=== PATIENT | female | born 1955 | race Caucasian/White ===

== ENCOUNTER → 2016-10-07 | Outpatient (CLI) | payer OTHER ==
[~2016-10-07] MED LIST: ADVIN25/60 INH; ALBUAER2 INH; ASPI81TA28 PO; ATEN-173 PO; CLOP1TAB15 PO; GABA-113 PO; IPRASOL4 INH; LEVO150T9 PO; LISI-461 PO; NITR0.4S UT; OXYC-106 PO; PRLSR20 PO; SIMV80TA2 PO
--- NOTE | 2016-10-08 06:24 | SPLIT NIGHT TECHNICIAN REPORT ---
[facility] Split Night Polysomnogram - Fixture Designer Report Study date: 10/07/2016 Referring Physician: Josr Ghosh DO Name: PUJA VYAS Fixture Designer: DIANE Baez. Date of : 1955 Height: 60 years, Height 5' 5" Sex: Female Weight: 235 lbs Age: 60 BMI: Medications: 39.1 CEFTIN 500 MG, PREDNISONE 20 MG, ENDOCET 10-325 MG, VENTOLIN HFA 108 (90) BASE, SINGULAIR 10 MG, TENORMIN 25 MG, ZOCOR 80 MG, PROVENTIL, LEVOXYL 125 MCG, NEURONTIN 300 MG, PRILOSEC 20 MG, LISINOPRIL 10 MG, NASONEX, VALTREX, NITROGLYCERIN 0.4 MG Patient History PATIENT HAS HISTORY OF SNORING, DAYTIME SLEEPINESS, AND FATIGUE. SHE ALSO CARRIED A HISTORY OF COPD. SHE IS HERE TODAY FOR AN EVALUATION OF NHI. ESS = 10 RM 6 Parameters Monitored NPSG: E1-M2, E2-M1, Fp1-M2, Fp2-M1, F3-M2, F4-M2, F4-M1, C3-M2, C4-M2, C4-M1, O1-M2, O2-M2, O2-M1, T3-M2, T4-M1, P3-M2, P4-M1, CHIN1, CHIN2, HR, EKG, Legs, PFLOW, SNOR, FLOW, CFLOW, Tidal Volume, THOR, ABDO, SpO2, PLTH, CPRESS, ETCO2 Wave, ETCO2, pH SLEEP SUMMARY DATA DIAGNOSTIC TREATMENT Lights Out: 10:07:54 PM 1:28:54 AM Lights On: 1:15:24 AM 6:00:24 AM Total Recording Time (TRT): 188.0 min. 272.0 min. Total Sleep Time (TST): 133.5 min. 253.5 min. NREM Time: 120.0 min. 112.0 min. REM Time: 13.5 min. 141.5 min. Sleep Period Time (SPT): 150.0 min. 260.0 min. Sleep Efficiency (SE): 71 % 93 % Sleep Latency: 37.5 min. 11.5 min. Arousal Index: 63.8 7.3 PAP Treatment Levels: 4, 5, 6, 7, 8, 9, 10, 11 * Optimal Pressure(s) SLEEP STAGING DATA DIAGNOSTIC TREATMENT Duration (min) TST % Duration (min) TST % Stage Wake: 54.0 min. -- 18.0 min. -- WASO: 16.5 min. -- 6.5 min. -- NREM: 120.0 min. 90 % 112.0 min. 44 % Stage N1: 14.5 min. 11 % 12.0 min. 5 % Stage N2: 105.5 min. 79 % 56.5 min. 22 % Stage N3: 0.0 min. 0 % 43.5 min. 17 % REM: 13.5 min. 10 % 141.5 min. 56 % POSITIONAL DATA Event Count Index Event Count Index Supine: 135 91 4 40.8 Supine NREM: 135 91.4 4 40.8 Supine REM: N/A N/A N/A N/A Non-Supine: 58 77.5 38 9.2 Non-Supine NREM: 45 85.9 33 18.4 Non-Supine REM: 13 57.8 5 2.1 AROUSAL SUMMARY DATA: Event Count Index Event Count Index Apnea Arousals: 26 16.6 1 1.2 Hypopnea Arousals: 96 43.1 13 3.1 Snore Arousals: 11 4.9 7 1.7 PLM Arousals: 1 0.4 0 0.0 Non-Specific Arousals: 16 7.2 8 1.9 Total Arousals: 142 63.8 31 7.3 MYOCLONUS (PLM) Event Count Index Event Count Index PLM: 1 0.4 5 1.2 PLM AROUSAL: 1 0.4 0 0.0 PLM W/O AROUSAL 1 0.4 5 1.2 PLM W/RESP EVENT 0 0.0 0 0.0 MYOCLONUS (PLM) Event Count Index Event Count Index LM: 0 11.7 47 11.1 LM AROUSAL: 0 0.0 3 0.7 LM W/O AROUSAL LM W/RESP EVENT LM NON SPECIFIC 14 6.3 47 11.1 HEART RATE DATA DIAGNOSTIC TREATMENT Sleep (bpm): 58 61 REM (bpm): 81 84 NREM (bpm): 86 88 Tachycardia Count: 0 0 Tachycardia Duration: 0.00 0 Bradycardia Count: 0 0 Bradycardia Duration: 0.00 0 DIAGNOSTIC PORTION TREATMENT PORTION RESPIRATORY DATA Event Count Index Event Count Index AHI: -- 86.7 -- 9.7 RDI: -- 86.7 -- 10 Obstructive Apnea: 37 16.6 5 1.2 Central Apnea: 0 0.0 0 0.0 Mixed Apnea: 0 0.0 0 0.0 Hypopnea: 156 70.1 36 8.5 RERA: 0 0.0 1 0.2 Total Apneas: 37 16.6 5 1.2 RESPIRATORY DATA REM NREM SLEEP REM NREM SLEEP Supine Position: Obstructive Apneas: N/A 37 37 N/A 0 0 Central Apneas: N/A 0 0 N/A 0 0 Mixed Apneas: N/A 0 0 N/A 0 0 Hypopneas: N/A 98 98 N/A 3 3 RERA N/A 0 0 N/A 1 1 Total Supine Events: N/A 135 135 N/A 4 4 Supine AHI: N/A 91.4 91 N/A 40.8 40.8 Supine RDI: N/A 91.4 91.4 N/A 54.4 54.4 REM NREM SLEEP REM NREM SLEEP Non-Supine Position: Obstructive Apneas: 0 0 0 0 5 5 Central Apneas: 0 0 0 0 0 0 Mixed Apneas: 0 0 0 0 0 0 Hypopneas: 13 45 58 5 28 33 RERA 0 0 0 0 0 0 Total Supine Events: 13 45 58 5 33 38 Supine AHI: 57.8 85.9 77.5 2.1 18.4 9.2 Supine RDI: 57.8 85.9 77.5 2.1 18.4 9.2 OXYGEN DESTAURATION DATA: Event Count Index Event Count Index REM Desaturations: 14 62.2 5 2.1 NREM Desaturations: 172 86.0 34 18.2 SNORE DATA DIAGNOSTIC TREATMENT Snore Time: 6.3 1:40:24 AM Snore TST%: 2 3 Snore Arousal Count: 11 7 Snore Arousal Index: 4.9 1.7 Desaturation Event Summary: Minimum %SpO2 Event Count Mean/Min/Max Duration(sec.) Desaturation Index % Time In Bed > 90 62 27.0 / 15.0 / 48.8 125.6 6.5 86 - 90 219 23.9 / 9.5 / 57.3 54.1 53.2 81 - 85 19 17.7 / 9.5 / 36.8 7.1 35.2 76 - 80 8 38.9 / 9.5 / 87.5 29.0 3.6 71 - 75 2 38.9 / 35.5 / 42.3 20.7 1.3 66 - 70 0 N/A 0.0 0.2 61 - 65 0 N/A 0.0 0.0 56 - 60 0 N/A 0.0 0.0 51 - 55 0 N/A 0.0 0.0 < 50 0 N/A 0.0 0.0 OXYGEN SATURATION DATA DIAGNOSTIC TREATMENT SpO2 Mean Sleep: 86 % 86 % SpO2 Mean REM: 81 % 84 % SpO2 Mean NREM: 86 % 88 % SpO2 Minimum Sleep: 63 % 72 % SpO2 Minimum REM: 63 % 72 % SpO2 Minimum NREM: 79 % 80 % Time Below 90% (TST): 112.0 201.3 Time Below 88% (TST): 86.3 161.8 Total REM NREM Awake <50% 0.0 min. 0.0 min. 0.0 min. 0.0 min. 51 - 60% 0.0 min. 0.0 min. 0.0 min. 0.0 min. 61 - 70% 1.0 min. 1.0 min. 0.0 min. 0.0 min. 71 - 80% 22.3 min. 19.6 min. 1.8 min. 0.9 min. 81 - 90% 404.1 min. 124.0 min. 212.0 min. 68.1 min. 91 - 100% 29.6 min. 10.4 min. 17.3 min. 2.0 min. Average 86 84 87 88 Minimum SpO2 63 63 79 75 Desaturation Event Index 31.0 7.4 53.3 15.8 # Desat. Events below 89% 237 18 203 16 Time(%) with Saturation below 89% 68.0 29.0 32.5 6.5 Time(min.) with Saturation below 89% 311.0 132.7 148.4 29.8 Recording Fixture Designer Comments: Ms. Vyas slept in the right, left and supine positions. No cardiac arrhythmia noted. or PLM's noted. No bruxism noted. Snoring was noted and scored as a 3 on a scale of 1 through 5. (0=no snoring, 5=snoring loud enough to be heard through a closed door or down the [address]) At 1:15 am Ms. Vyas has met specific Split-Night criteria during the diagnostic portion of this study. CPAP was initiated at +4 CMH2O and up-titrated to an optimal level of +11 CMH2O, which nearly eliminated all respiratory events and snoring. A Phillips and Kapta Simplus size medium full face mask was used during titration Ms. Vyas awoke to use the restroom 0 times during the night. Ms. Vyas stated I slept as well as I do when I am in my own bed. I started supplemental oxygen at 1l/min around 4:38 am. I increased to 2l/min around 5:05 am. Final pressure was 11cwp cflex 3 with 2l/min of 02. The final report will be interpreted and signed by a sleep physician. The completed physician report will then be placed in the patient medical record. Therapy Event: Therapy (cm H20) 0 4 5 6 7 8 9 10 11 Total Time at Pressure (min.) 187.5 21.1 5.4 8.1 5.5 14.8 12.1 152.5 52.0 TST at Pressure (min.) 133.5 8.6 5.4 8.1 5.5 14.8 12.1 147.0 52.0 # Periods 1 1 1 1 1 1 1 1 1 Sleep Onset (min.) 37.5 11.5 0.0 0.0 0.0 0.0 0.0 0.0 0.0 REM Onset (min.) 162.0 N/A N/A N/A N/A N/A 0.6 0.0 21.5 Sleep Efficiency % 71 40 100 100 100 100 100 96 100 Wakefulness (%) 28.8 59.3 0.0 0.0 0.0 0.0 0.0 3.6 0.0 Wakefulness (min.) 54.0 12.5 0.0 0.0 0.0 0.0 0.0 5.5 0.0 NREM 1 (%) 7.7 35.6 0.0 0.0 0.0 0.0 0.0 3.0 0.0 NREM 1 (min.) 14.5 7.5 0.0 0.0 0.0 0.0 0.0 4.5 0.0 NREM 2 (%) 56.3 5.1 100.0 100.0 100.0 52.6 4.6 18.4 0.0 NREM 2 (min.) 105.5 1.1 5.4 8.1 5.5 7.8 0.6 28.0 0.0 NREM 3 (%) 0.0 0.0 0.0 0.0 0.0 47.4 0.0 9.8 41.3 NREM 3 (min.) 0.0 0.0 0.0 0.0 0.0 7.0 0.0 15.0 21.5 REM (%) 7.2 0.0 0.0 0.0 0.0 0.0 95.4 65.2 58.7 REM (min.) 13.5 0.0 0.0 0.0 0.0 0.0 11.5 99.5 30.5 # Arousals 142 8 4 1 0 12 0 6 0 Arousal Index 63.8 56.0 44.1 7.4 0.0 48.8 0.0 2.4 0.0 # Snore 253 23 45 56 16 37 12 78 0 Snore Index 113.7 161.0 496.6 412.7 173.6 150.4 59.7 31.8 0.0 AHI 86.7 35.0 88.3 59.0 0.0 48.8 19.9 1.2 1.2 AHI Supine 91.4 N/A N/A N/A N/A N/A N/A 40.8 N/A AHI Non-Supine 77.5 35.0 88.3 59.0 0.0 48.8 19.9 0.0 1.2 NREM AHI 90.0 35.0 88.3 59.0 0.0 48.8 0.0 3.8 0.0 REM AHI 57.8 N/A N/A N/A N/A N/A 20.9 0.0 2.0 RDI 86.7 35.0 88.3 59.0 0.0 48.8 19.9 1.6 1.2 # Obstructive 37 1 2 2 0 0 0 0 0 # Central Ap 0 0 0 0 0 0 0 0 0 # Mixed 0 0 0 0 0 0 0 0 0 # Hypopneas 156 4 6 6 0 12 4 3 1 RERAS 0 0 0 0 0 0 0 1 0 Total Respiratory Events 193 5 8 8 0 12 4 4 1 Time Below SpO2 89.00% (min.) 100.6 7.7 4.3 6.7 5.5 14.8 12.1 120.5 9.0 Mean NREM SpO2 (%) 86 86 87 87 85 84 86 88 91 Mean REM SpO2 (%) 81 N/A N/A N/A N/A N/A 78 83 90 Mean Sleep SpO2 (%) 86 86 87 87 85 84 78 85 90 Min NREM SpO2 (%) 79 83 83 82 84 80 84 84 90 Min REM SpO2 (%) 63 N/A N/A N/A N/A N/A 72 72 85 Position Supine (min.) 88.6 0.0 0.0 0.0 0.0 0.0 0.0 4.4 0.0 Position Non-supine (min.) 44.9 8.6 5.4 8.1 5.5 14.8 12.1 142.6 52.0 LM Index Sleep 12.1 7.0 11.0 7.4 10.9 12.2 0.0 15.9 6.9 LM Index NREM 12.5 7.0 11.0 7.4 10.9 12.2 0.0 11.4 11.2 LM Index REM 8.9 N/A N/A N/A N/A N/A 0.0 18.1 3.9 Mean Heart Rate (bpm) 58 59 58 58 59 57 62 62 60 Min Heart Rate (bpm) 42 53 54 54 58 50 48 54 55
--- NOTE | 2016-10-18 15:23 | POLYSOMNOGRAPH REPORT ---
REFERRING PERSON: Dr. Brett Goodrich. LUMP INSPECTOR: Byron Sweeney. PRIMARY CARE DOCTOR: Josr Ghosh DO in [place]. Ms. Vyas is a 60-year-old female with a history of excessive daytime sleepiness, fatigue and snoring. She carries a diagnosis of COPD. She is sent to the sleep lab to rule out sleep disordered breathing. Her [place] sleepiness scale score on the evening of this study is 10. BMI is 39.1. Following the technical and digital specifications of the [employer] (AASM) a standard diagnostic polysomnogram was performed monitoring EEG, EOG, EMG (chin and leg deviations), oxygen saturation, body position, digital video, respiratory effort and airflow. The sleep Stage and event scoring was based on the AASM Manual for the Scoring of Sleep and Associated Events 2007 edition. Apneas are defined as a drop in the peak thermal sensor excursion by >90% of baseline for at least 10 seconds. Hypopneas were scored using the 4% oxygen desaturation rule (4A-[employer]) and a decrease in the nasal pressure excursions by >30% of baseline for at least 10 seconds. Respiratory effort-related arousal (RERA's) is defined as a sequence of breaths lasting at least 10 seconds characterized by increasing respiratory effort or flattening of the nasal pressure waveform leading to an arousal from sleep when the sequence of breaths does not meet criteria for an apnea or hypopnea. Apnea Hypopnea index (AHI) is defined as the number of apneas and hypopneas occurring in an hour of sleep. Respiratory disturbance index (RDI) is defined as the number of apneas, hypopneas, and RERA's occurring in an hour of sleep. Ms. Vyas did qualify for a split night sleep study. She was observed for 133.5 minutes of sleep time. During that time, she had 11% N1 sleep, 79% N2 sleep and 10% REM sleep. There were 142 arousals from sleep. 16 of those arousals were nonspecific, 1 was due to periodic limb movement, 11 due to snoring and the remainder were due to respiratory events. There was only 1 periodic limb movement noted during observation. Mean saturation during sleep was low during observation. Saturation was 86% with desaturations to 63%. There were 37 obstructive apneas, no mixed or no central apneas. However, there were also 154 hypopneas. Apnea-hypopnea index pretreatment was 86.7. Therefore, the decision was made at 1:15 a.m., to start this patient on CPAP therapy. Ms. Vyas chose a Phillips and EzFlop - A First of Its Kind Flip Flop medium Simplus full facemask for her titration. Increasing pressures were needed to prevent apneas, hypopneas and arousals. She was observed on a pressure of 10 for 147 minutes of sleep time, 99.5 of those minutes was spent in non-supine REM. AHI and RDI on this pressure were 1.2 and 1.6 respectively. However, despite adequate treatment of sleep disordered breathing, this patient continued to have nocturnal hypoxemia. Therefore, at 4:38 a.m., this patient was started on oxygen at 1 liter. This was increased to 2 liters for continued hypoxemia at 5:05 a.m. The last hour of this study with 30.5 minutes of non-supine REM sleep, this patient had an AHI and RDI of 1.2 and saturations less than 89 for 9 minutes. IMPRESSION AND PLAN: Successful split night sleep study in this patient with very severe sleep apnea and significant nocturnal hypoxemia. I would recommend to start that this patient be placed on CPAP at a pressure of 11 with 2 liters of supplemental oxygen. A download should be reviewed in 1 month both to check compliance as well as AHI. An overnight oximetry on these settings should also be performed to see if this is an adequate amount of oxygen supplementation to improve her hypoxemia. She did have some mild hypoxemia despite 2 liters of oxygen on this study. MTDD
== END | disposition home or self-care (01) ==
LOC: C.NEUR 20:00
PROVIDERS: ATTEND Internal Medicine
DX: G47.33 Obstructive sleep apnea (adult) (pediatric) (principal)